=== PATIENT | male | born 1945 | race Caucasian/White ===

== ENCOUNTER 2019-06-04 07:38 | Day surgery (SDC) | payer MEDICARE, OTHER ==
[2019-06-04] MEDS ORDERED: Propofol 200 MG/20 ML SDV ONE (09:08)
[2019-06-04] MEDS ORDERED: fentaNYL 100 MCG/2 ML SDV ONE (09:08)
[2019-06-04] MEDS ORDERED: Dextrose 5%-Lactated Ringers 1,000 ML IV SCH (10:45)
[2019-06-04] MEDS ORDERED: Lactated Ringers 1,000 ML IV SCH ×2 (10:45→11:45)
[2019-06-04 11:27] VITALS: BP 102/65; PULSE 52
--- NOTE | 2019-06-04 11:31 | OR ---
DATE OF PROCEDURE: 06/04/2019 SURGEON: Ricky De Paz MD PREOPERATIVE DIAGNOSES: Dysphagia, colon cancer screening. POSTOPERATIVE DIAGNOSES: Dysphagia, etiology unknown; mild antral inflammation; 6 right colon polyps. PROCEDURES: Esophagogastroduodenoscopy with antral biopsies for CLOtest and for pathology to look for Helicobacter pylori. Colonoscopy to the cecum with biopsy resection or snare cautery polypectomy, 6 right colon polyps adjacent to each other. Sent to the laboratory as one specimen. ANESTHESIA: IV anesthesia with monitored anesthesia care. INDICATION: This 73-year-old white male is referred for upper and lower endoscopy. The indication for upper endoscopy is dysphagia. He says that food sometimes gets stuck, it is quite uncomfortable, feels like a charley horse in his chest. In time, the discomfort passes and the food bolus moves on into the stomach. Additionally, he is referred for a colonoscopy for colon cancer screening. His last colonoscopic exam was done 10 years ago. I counseled him for upper and lower endoscopy with possible biopsy and/or polypectomy, including risks and alternatives, and he gave his informed consent to proceed. DESCRIPTION OF PROCEDURE: The patient was placed in the left lateral decubitus position. IV anesthesia was administered by the Anesthesia Service. Time-out was held. The flexible video Olympus upper endoscope was passed through his mouth, down the esophagus, and into his stomach. The scope was easily passed through the pylorus into the duodenum, reaching its third portion. The scope was then slowly withdrawn, examining the mucosa throughout. The duodenal mucosa appeared unremarkable. The scope was brought up to the pylorus. There was red streaking emanating from the pylorus, consistent with mild gastritis. We obtained antral biopsies for CLOtest and for pathology to look for Helicobacter pylori. The scope was retroflexed. The proximal stomach appeared unremarkable. The scope was straightened and brought up through the GE junction. This appeared unremarkable. The scope was then brought up through the esophagus, which throughout its course appeared unremarkable and it was removed. There was no evidence of any obstructing lesions in his esophagus. Next, a rectal exam was performed, which was unremarkable. The flexible video Olympus colonoscope was introduced through his anus, up his rectum, out his colon all the way to the cecum. In the right colon, we encountered multiple small polyps. These were removed with the biopsy forceps, except for one which was larger and we had to place a snare about its base. It was amputated with electrocautery being applied and was aspirated through the scope and captured in a polyp trap. Once the cecum was reached, the scope was slowly withdrawn, examining the mucosa throughout. No other mucosal abnormalities were noted. There were a total of six polyps we removed from the right colon. The scope was retroflexed in the rectum with the distal rectum appearing unremarkable. The scope was straightened and removed. He tolerated the procedure well. Ricky De Paz MD /[id number]
== END 2019-06-04 11:38 | disposition home or self-care (01) ==
LOC: JP.SDS 07:38
PROVIDERS: ATTEND Surgery
DX: Z12.11 Encounter for screening for malignant neoplasm of colon (principal); K29.50 Unspecified chronic gastritis without bleeding; D12.6 Benign neoplasm of colon, unspecified; K21.9 Gastro-esophageal reflux disease without esophagitis; I25.10 Atherosclerotic heart disease of native coronary artery without angina pectoris; I10 Essential (primary) hypertension
CPT/HCPCS: 87081; 88305; 88342; J2704; J3010; J7120

== ENCOUNTER 2021-07-16 11:39 | Inpatient (IN) | payer MEDICARE ==
[2021-07-16] MEDS ORDERED: Sodium Chloride 0.9% 10 ML Syringe FLUSH PRN (11:54)
--- NOTE | 2021-07-16 12:05 | EDM.PDOC ---
ED HPI GENERAL MEDICAL PROBLEM - General Chief Complaint: Syncope Stated Complaint: [facility] Time Seen by Provider: 07/16/21 11:50 Source of Information: Reports: Patient, EMS, Old Records History Limitations: Reports: No Limitations - History of Present Illness INITIAL COMMENTS - FREE TEXT/NARRATIVE: 75 yo male here from the [facility] for near syncope. Has a pHx of COPD. Quit smoking about 6-7 yrs ago. No fever. Has had cold sx's lately. Is not on home oxygen. Sats in the low 80's per EMS en route. IV fluids started. Not Covid vaccinated. Onset: Gradual Onset Date: 07/14/21 Duration: Day(s):, Getting Worse Location: Reports: Generalized Quality: Reports: Ache (diffuse, chronic) Severity: Moderate Improves with: Reports: Medication Worsens with: Reports: None Context: Reports: Other (See HPI) Associated Symptoms: Reports: Cough (occasional), Loss of Appetite, Malaise, Shortness of Breath (mild), Other (near syncope in clinic today). 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 Neck Pain Score (Numeric/FACES): 2 - Related Data Allergies Allergy/AdvReac Type Severity Reaction Status Date / Time No Known Allergies Allergy Verified 07/16/21 12:29 Home Meds: Home Meds Multivitamin [Men's Multi-Vitamin] 1 mg PO DAILY 01/31/16 [History] Terazosin HCl [Terazosin] 5 mg PO BEDTIME 01/31/16 [History] atorvaSTATin [Lipitor] 40 mg PO BEDTIME 01/31/16 [History] Calcium Carbonate/Vitamin D3 [Calcium 600 + Vit D 200] 1 each PO DAILY 05/17/19 [History] Clopidogrel Bisulfate [Plavix] 75 mg PO DAILY 05/17/19 [History] Acetaminophen 650 mg PO BID PRN 07/16/21 [History] Albuterol Sulfate [Proair Respiclick] 1 puff INH ASDIRECTED 07/16/21 [History] Aspirin 81 mg PO DAILY 07/16/21 [History] Ipratropium/Albuterol Sulfate [Iprat-Albut 0.5-3(2.5) mg/3 ml] 1 dose INH TID 07/16/21 [History] Metoprolol Succinate 12.5 mg PO DAILY 07/16/21 [History] Pantoprazole [ProTONIX] 40 mg PO BEDTIME 07/16/21 [History] QUEtiapine [SEROquel] 12.5 mg PO BEDTIME 07/16/21 [History] QUEtiapine [SEROquel] 12.5 mg PO DAILY PRN 07/16/21 [History] Sennosides/Docusate Sodium [Senna-S 8.6-50 mg Tablet] 2 tab PO DAILY 07/16/21 [History] Sucralfate 1 tab PO QID PRN 07/16/21 [History] Tiotropium [place] [Spiriva Respimat] 2 puff INH DAILY 07/16/21 [History] Past Medical History HEENT History: Reports: Impaired Vision Cardiovascular History: Reports: High Cholesterol, Hypertension, CO Gastrointestinal History: Reports: GERD Genitourinary History: Reports: Prostate Disorder Musculoskeletal History: Reports: Arthritis, Fracture Neurological History: Reports: CVA, Migraines Psychiatric History: Reports: Other (See Below) Other Psychiatric History: insomnia - Infectious Disease History Infectious Disease History: Reports: Chicken Pox - Past Surgical History HEENT Surgical History: Reports: Oral Surgery Cardiovascular Surgical History: Reports: Other (See Below) Other Cardiovascular Surgeries/Procedures: angiogram 1999 GI Surgical History: Reports: Colonoscopy Musculoskeletal Surgical History: Reports: Other (See Below) Other Musculoskeletal Surgeries/Procedures:: fractured knee cap Social & Family History - Caffeine Use Caffeine Use: Reports: Coffee ED ROS GENERAL - Review of Systems Review Of Systems: See Below Constitutional: Reports: Malaise, Decreased Appetite. Denies: Fever HEENT: Reports: No Symptoms Respiratory: Reports: Shortness of Breath, Cough. Denies: Wheezing, Sputum Cardiovascular: Reports: No Symptoms, Syncope (near syncope) GI/Abdominal: Reports: Decreased Appetite. Denies: Constipation, Diarrhea : Reports: No Symptoms Musculoskeletal: Reports: No Symptoms Skin: Reports: No Symptoms Neurological: Reports: No Symptoms - Physical Exam Exam: See Below Exam Limited By: No Limitations General Appearance: Alert, WD/WN, No Apparent Distress Eye Exam: Bilateral Eye: Normal Inspection Ears: Hearing Loss, Other (hearing aid L ear) Nose: Normal Inspection, No Blood Throat/Mouth: Normal Lips, Normal Oropharynx, Normal Voice, No Airway Compromise, Other (dry oral mucosa) Head Exam: Atraumatic, Normocephalic Neck: Normal Inspection Respiratory/Chest: No Respiratory Distress, Lungs Clear. No: Normal Breath Sounds (decreased BS bilaterally) Cardiovascular: Regular Rate, Rhythm, No Edema GI/Abdominal: Normal Bowel Sounds, Soft, Non-Tender, No Distention Neuro Exam (Abbreviated): Alert, Oriented, CN II-XII Intact, Normal Cognition, No Motor/Sensory Deficits Back Exam: Normal Inspection. No: CVA Tenderness (R), CVA Tenderness (L) Extremities: Normal Inspection, Normal Range of Motion, Non-Tender, No Pedal Edema. No: Pedal Edema Psychiatric: Normal Affect, Normal Mood Skin Exam: Warm, Dry, Intact, Normal Color, No Rash Course - Vital Signs Last Recorded V/S: Last Vital Signs Temp 35.8 C L 07/16/21 17:01 Pulse 67 07/16/21 17:01 Resp 18 07/16/21 17:01 BP 127/54 L 07/16/21 17:01 Pulse Ox 97 07/16/21 17:17 - Orders/Labs/Meds Orders: Active Orders 24 hr Category Date Time Status Sodium Chloride 0.9% [Saline Flush] Med 07/16/21 11:54 Active 10 ml FLUSH ASDIRECTED PRN Saline Lock Insert [OM.PC] Routine Oth 07/16/21 11:54 Ordered Medication Orders Acetaminophen (Acetaminophen 325 Mg Tab) 650 mg PO Q4H PRN PRN Reason: Pain (Mild 1-3)/fever Albuterol (Albuterol 8 Gm Inhaler) 0 gm INH Q4H PRN PRN Reason: shortness of breath/wheezing Albuterol/Ipratropium (Albuterol/Ipratropium 4 Gm Inhalation Flushing) 0 gm INH QIDRT REHANA Aspirin (Aspirin 81 Mg Tab.Chew) 81 mg PO DAILY REHANA Atorvastatin Calcium (Atorvastatin 20 Mg Tab) 40 mg PO BEDTIME REHANA Benzonatate (Benzonatate 100 Mg Cap) 100 mg PO TID PRN PRN Reason: Cough Clopidogrel Bisulfate (Clopidogrel 75 Mg Tab) 75 mg PO DAILY [facility] Dexamethasone (Dexamethasone 4 Mg/Ml Sdv) 6 mg IVPUSH Q24H [facility] Enoxaparin Sodium (Enoxaparin 40 Mg/0.4 Ml Syringe) 40 mg SUBCUT Q24H REHANA Last Admin: 07/16/21 17:42 Dose: 40 mg Documented by: GUILLE Guaifenesin/Dextromethorphan (Guaifenesin/Dextromethorphan 100-10 Mg/5 Ml Soln 10 Ml Cup) 10 ml PO Q4H PRN PRN Reason: Cough Remdesivir 100 mg/ Sodium (Chloride) 100 mls @ 100 mls/hr IV Q24H [facility] Stop: 07/20/21 15:59 Lorazepam (Lorazepam 2 Mg/Ml Sdv) 0.5 mg IVPUSH Q4H PRN PRN Reason: Nausea/Vomiting Magnesium Hydroxide (Magnesium Hydroxide 400 Mg/5 Ml Susp 30 Ml Cup) 30 ml PO Q12H PRN PRN Reason: Constipation Melatonin (Melatonin 3 Mg Tab) 9 mg PO BEDTIME PRN PRN Reason: Sleep Metoprolol Succinate (Metoprolol Succinate 25 Mg Tab.Er) 12.5 mg PO DAILY REHANA Ondansetron HCl (Ondansetron 4 Mg/2 Ml Sdv) 4 mg IV Q6H PRN PRN Reason: Nausea/Vomiting Ondansetron HCl (Ondansetron 4 Mg Tab.Dis) 4 mg PO Q6H PRN PRN Reason: Nausea able to take PO Oxycodone HCl (Oxycodone 5 Mg Tab) 5 - 10 mg PO Q4H PRN PRN Reason: Pain Pantoprazole Sodium (Pantoprazole 40 Mg Tab.Cr) 40 mg PO BEDTIME REHANA Quetiapine Fumarate (Quetiapine 25 Mg Tab) 12.5 mg PO BEDTIME REHANA Quetiapine Fumarate (Quetiapine 25 Mg Tab) 12.5 mg PO DAILY PRN PRN Reason: Agitation Senna/Docusate Sodium (Docusate Sodium/Sennosides 50-8.6 Mg Tab) 1 tab PO BID PRN PRN Reason: Constipation Sodium Chloride (Sodium Chloride 0.9% 10 Ml Syringe) 10 ml FLUSH ASDIRECTED PRN PRN Reason: Keep Vein Open Last Admin: 07/16/21 12:39 Dose: 10 ml Documented by: TRUMAN Terazosin HCl (Terazosin 5 Mg Cap) 5 mg PO BEDTIME [facility] Labs: Laboratory Tests 07/16/21 07/16/21 07/16/21 Range/Units 11:56 12:10 12:10 WBC 4.9 (4.5-11.0) K/uL RBC 3.48 L (4.30-5.90) M/uL Hgb 11.2 L D (12.0-15.0) g/dL Hct 35.2 L (40.0-54.0) % MCV 101 H (80-98) fL MCH 32 H (27-31) pg MCHC 32 (32-36) % Plt Count 136 L (150-400) K/uL D-Dimer, Quantitative (0.0-500.0) ng/mL Sodium 139 L (140-148) mmol/L Potassium 4.9 (3.6-5.2) mmol/L Chloride 107 (100-108) mmol/L Carbon Dioxide 23 (21-32) mmol/L Anion Gap 13.9 (5.0-14.0) mmol/L BUN 27 H D (7-18) mg/dL Creatinine 1.4 H (0.8-1.3) mg/dL Est Cr Clr Drug Dosing 45.36 mL/min Estimated GFR (MDRD) 49 L (>60) Glucose 121 H (74-106) mg/dL Calcium 7.7 L (8.5-10.1) mg/dL Total Bilirubin (0.2-1.0) mg/dL Direct Bilirubin (0.0-0.2) mg/dL Indirect Bilirubin AST (15-37) U/L ALT (12-78) U/L Alkaline Phosphatase (46-116) U/L C-Reactive Protein (0.0-0.3) mg/dL Total Protein (6.4-8.2) g/dL Albumin (3.4-5.0) g/dL Globulin (2.3-3.5) g/dL Albumin/Globulin Ratio (1.2-2.2) SARS CoV-2 RNA Rapid HUGO Positive H 07/16/21 07/16/21 07/16/21 Range/Units 12:38 13:08 14:49 WBC (4.5-11.0) K/uL RBC (4.30-5.90) M/uL Hgb (12.0-15.0) g/dL Hct (40.0-54.0) % MCV (80-98) fL MCH (27-31) pg MCHC (32-36) % Plt Count (150-400) K/uL D-Dimer, Quantitative 2218.92 H (0.0-500.0) ng/mL Sodium (140-148) mmol/L Potassium (3.6-5.2) mmol/L Chloride (100-108) mmol/L Carbon Dioxide (21-32) mmol/L Anion Gap (5.0-14.0) mmol/L BUN (7-18) mg/dL Creatinine (0.8-1.3) mg/dL Est Cr Clr Drug Dosing mL/min Estimated GFR (MDRD) (>60) Glucose (74-106) mg/dL Calcium (8.5-10.1) mg/dL Total Bilirubin 0.2 D (0.2-1.0) mg/dL Direct Bilirubin 0.08 (0.0-0.2) mg/dL Indirect Bilirubin TNP AST 23 (15-37) U/L ALT 30 (12-78) U/L Alkaline Phosphatase 84 (46-116) U/L C-Reactive Protein 1.88 H (0.0-0.3) mg/dL Total Protein 6.0 L (6.4-8.2) g/dL Albumin 2.6 L (3.4-5.0) g/dL Globulin 3.4 (2.3-3.5) g/dL Albumin/Globulin Ratio 0.8 L (1.2-2.2) SARS CoV-2 RNA Rapid HUGO Meds: Medications Generic Name Dose Route Start Last Admin Trade Name Freq PRN Reason Stop Dose Admin Acetaminophen 650 mg 07/16/21 16:39 Acetaminophen 325 Mg Tab PO Q4H PRN Pain (Mild 1-3)/fever Albuterol 0 gm 07/16/21 16:39 Albuterol 8 Gm Inhaler INH Q4H PRN shortness of breath/wheezing Albuterol/Ipratropium 0 gm 07/16/21 21:00 Albuterol/Ipratropium 4 Gm Inhalation Flushing INH QIDRT REHANA Aspirin 81 mg 07/17/21 09:00 Aspirin 81 Mg Tab.Chew PO DAILY [facility] Atorvastatin Calcium 40 mg 07/16/21 21:00 Atorvastatin 20 Mg Tab PO BEDTIME REHANA Benzonatate 100 mg 07/16/21 16:39 Benzonatate 100 Mg Cap PO TID PRN Cough Clopidogrel Bisulfate 75 mg 07/17/21 09:00 Clopidogrel 75 Mg Tab PO DAILY [facility] Dexamethasone 6 mg 07/17/21 15:00 Dexamethasone 4 Mg/Ml Sdv IVPUSH Q24H [facility] Enoxaparin Sodium 40 mg 07/16/21 18:00 07/16/21 17:42 Enoxaparin 40 Mg/0.4 Ml Syringe SUBCUT 40 mg Q24H [facility] Administration Guaifenesin/Dextromethorphan 10 ml 07/16/21 16:39 Guaifenesin/Dextromethorphan 100-10 Mg/5 Ml Soln 10 Ml Cup PO Q4H PRN Cough Remdesivir 100 mg/ Sodium 100 mls @ 100 mls/hr 07/17/21 15:00 Chloride IV 07/20/21 15:59 Q24H [facility] Lorazepam 0.5 mg 07/16/21 16:39 Lorazepam 2 Mg/Ml Sdv IVPUSH Q4H PRN Nausea/Vomiting Magnesium Hydroxide 30 ml 07/16/21 16:39 Magnesium Hydroxide 400 Mg/5 Ml Susp 30 Ml Cup PO Q12H PRN Constipation Melatonin 9 mg 07/16/21 16:39 Melatonin 3 Mg Tab PO BEDTIME PRN Sleep Metoprolol Succinate 12.5 mg 07/17/21 09:00 Metoprolol Succinate 25 Mg Tab.Er PO DAILY [facility] Ondansetron HCl 4 mg 07/16/21 16:39 Ondansetron 4 Mg/2 Ml Sdv IV Q6H PRN Nausea/Vomiting Ondansetron HCl 4 mg 07/16/21 16:39 Ondansetron 4 Mg Tab.Dis PO Q6H PRN Nausea able to take PO Oxycodone HCl 5 - 10 mg 07/16/21 16:39 Oxycodone 5 Mg Tab PO Q4H PRN Pain Pantoprazole Sodium 40 mg 07/16/21 21:00 Pantoprazole 40 Mg Tab.Cr PO BEDTIME [facility] Quetiapine Fumarate 12.5 mg 07/16/21 21:00 Quetiapine 25 Mg Tab PO BEDTIME [facility] Quetiapine Fumarate 12.5 mg 07/16/21 16:39 Quetiapine 25 Mg Tab PO DAILY PRN Agitation Senna/Docusate Sodium 1 tab 07/16/21 16:39 Docusate Sodium/Sennosides 50-8.6 Mg Tab PO BID PRN Constipation Sodium Chloride 10 ml 07/16/21 11:54 07/16/21 12:39 Sodium Chloride 0.9% 10 Ml Syringe FLUSH 10 ml ASDIRECTED PRN Administration Keep Vein Open Terazosin HCl 5 mg 07/16/21 21:00 Terazosin 5 Mg Cap PO BEDTIME REHANA Discontinued Medications Generic Name Dose Route Start Last Admin Trade Name Freq PRN Reason Stop Dose Admin Dexamethasone 6 mg 07/16/21 13:08 07/16/21 14:48 Dexamethasone 4 Mg/Ml Sdv IVPUSH 07/16/21 13:09 6 mg ONETIME ONE Administration Sodium Chloride 1,000 mls @ 1,000 mls/hr 07/16/21 12:53 Normal Saline IV 07/16/21 13:52 .BOLUS ONE Sodium Chloride 1,000 mls @ 1,000 mls/hr 07/16/21 13:07 07/16/21 14:50 Normal Saline IV 07/16/21 14:06 1,000 mls/hr .BOLUS ONE Administration Remdesivir 200 mg/ Sodium 250 mls @ 250 mls/hr 07/16/21 14:15 07/16/21 14:50 Chloride IV 07/16/21 15:14 250 mls/hr ONETIME ONE Administration - Radiology Interpretation Free Text/Narrative:: CXR- Departure - Departure Time of Disposition: 17:20 Disposition: Admitted As Inpatient 64 Condition: Poor Clinical Impression: COVID-19, Hypoxia - Discharge Information *PRESCRIPTION DRUG MONITORING PROGRAM REVIEWED*: Not Applicable *COPY OF PRESCRIPTION DRUG MONITORING REPORT IN PATIENT MOIZ: Not Applicable Sepsis Event Note (ED) - Focused Exam Vital Signs: Vital Signs Temp Pulse Resp BP Pulse Ox 07/16/21 14:48 70 18 104/56 L 98 07/16/21 13:48 75 16 109/64 96 07/16/21 12:24 36.1 C 84 18 111/53 L 96 07/16/21 11:49 36.1 C 84 18 111/53 L 96 - My Orders Last 24 Hours: My Active Orders 07/16/21 11:54 Sodium Chloride 0.9% [Saline Flush] 10 ml FLUSH ASDIRECTED PRN Saline Lock Insert [OM.PC] Routine - Assessment/Plan Last 24 Hours: My Active Orders 07/16/21 11:54 Sodium Chloride 0.9% [Saline Flush] 10 ml FLUSH ASDIRECTED PRN Saline Lock Insert [OM.PC] Routine
[2021-07-16] MEDS ORDERED: Sodium Chloride 0.9% 1,000 ML IV ONE ×2 (12:53→13:07)
[2021-07-16] MEDS ORDERED: REMDESIVIR 200 MG in Sodium Chloride 0.9% 250 ML IV ONE ×2 (13:08→14:15)
[2021-07-16] MEDS ORDERED: Dexamethasone 4 MG/ML SDV IVPUSH ONE (13:08)
--- NOTE | 2021-07-16 13:12 | CR ---
CHEST: 2 view CLINICAL HISTORY:Weakness, hypoxia, COPD COMPARISON:2016 FINDINGS: Lungs are emphysematous. There has been previous sternotomy. There are atherosclerotic changes in the aorta. Heart size and pulmonary vascular normal. No infiltrate or effusion seen. Impression: Emphysematous changes No acute cardiac pulmonary process
--- NOTE | 2021-07-16 16:27 | PCM.HP.2 ---
H&P History of Present Illness - General Date of Service: 07/16/21 Admit Problem/Dx: Admission Diagnosis/Problem Admission Diagnosis/Problem Pneumonia Source of Information: Patient, Provider History Limitations: Reports: No Limitations - History of Present Illness Initial Comments - Free Text/Narative: CC: I almost passed out HPI: Jonn presents to the emergency room today from the clinic and walk[facility]. He presented there for follow-up and had a near syncopal episode. He reports that for about the past week he has felt like he had a cold with some sinus congestion and rhinorrhea. No fevers. He does have an intermittent cough with some sputum. Symptoms have progressed over the past week or so. He has had increasing shortness of breath. He has had increasing weakness and his appetite has not been very good. He reports diffuse myalgias and arthralgias which have progressed over the past week. He is more comfortable when he is resting in his chair but has increased achy pain throughout essentially his entire body with any sort of movement. He has not taken any medications to help with the pain. He is not aware of any obvious sick contacts and says he is at home most of the time. He and his do some grocery shopping but that is the extent of their travel. He has not been vaccinated against Covid. He does report some mild diarrhea and had nausea earlier. No loss of taste or smell. Work-up in the emergency room revealed evidence for Covid pneumonia complicated by acute respiratory failure with hypoxia. He received dexamethasone and remdesivir. He will be admitted for further management. Neck Pain Score (Numeric/FACES): 2 - Related Data Allergies/Adverse Reactions: Allergies Allergy/AdvReac Type Severity Reaction Status Date / Time No Known Allergies Allergy Verified 07/16/21 12:29 Home Medications: Home Meds Multivitamin [Men's Multi-Vitamin] 1 mg PO DAILY 01/31/16 [History] Terazosin HCl [Terazosin] 5 mg PO BEDTIME 01/31/16 [History] atorvaSTATin [Lipitor] 40 mg PO BEDTIME 01/31/16 [History] Calcium Carbonate/Vitamin D3 [Calcium 600 + Vit D 200] 1 each PO DAILY 05/17/19 [History] Clopidogrel Bisulfate [Plavix] 75 mg PO DAILY 05/17/19 [History] Acetaminophen 650 mg PO BID PRN 07/16/21 [History] Albuterol Sulfate [Proair Respiclick] 1 puff INH ASDIRECTED 07/16/21 [History] Aspirin 81 mg PO DAILY 07/16/21 [History] Ipratropium/Albuterol Sulfate [Iprat-Albut 0.5-3(2.5) mg/3 ml] 1 dose INH TID 07/16/21 [History] Metoprolol Succinate 12.5 mg PO DAILY 07/16/21 [History] Pantoprazole [ProTONIX] 40 mg PO BEDTIME 07/16/21 [History] QUEtiapine [SEROquel] 12.5 mg PO BEDTIME 07/16/21 [History] QUEtiapine [SEROquel] 12.5 mg PO DAILY PRN 07/16/21 [History] Sennosides/Docusate Sodium [Senna-S 8.6-50 mg Tablet] 2 tab PO DAILY 07/16/21 [History] Sucralfate 1 tab PO QID PRN 07/16/21 [History] Tiotropium [place] [Spiriva Respimat] 2 puff INH DAILY 07/16/21 [History] Past Medical History HEENT History: Reports: Impaired Vision Cardiovascular History: Reports: High Cholesterol, Hypertension, [place] Gastrointestinal History: Reports: GERD Genitourinary History: Reports: Prostate Disorder Musculoskeletal History: Reports: Arthritis, Fracture Neurological History: Reports: CVA, Migraines Psychiatric History: Reports: Other (See Below) Other Psychiatric History: insomnia - Infectious Disease History Infectious Disease History: Reports: Chicken Pox - Past Surgical History HEENT Surgical History: Reports: Oral Surgery Cardiovascular Surgical History: Reports: Carotid Endarterectomy, Coronary Artery Bypass, Other (See Below) Other Cardiovascular Surgeries/Procedures: angiogram 1999 GI Surgical History: Reports: Colonoscopy Musculoskeletal Surgical History: Reports: Other (See Below) Other Musculoskeletal Surgeries/Procedures:: fractured knee cap Social & Family History - Family History Cardiac: Denies: CAD - Tobacco Use Tobacco Use Status *Q: Former Tobacco User Used Tobacco, but Quit: Yes Month/Year Tobacco Last Used: 2015 - Caffeine Use Caffeine Use: Reports: Coffee - Alcohol Use Alcohol Use History: No Alcohol Use in Last Twelve Months: No - Recreational Drug Use Recreational Drug Use: No H&P Review of Systems - Review of Systems: Review Of Systems: See Below Free Text/Narrative: A complete 12 point review of systems was obtained. Pertinent positives and negatives are noted in the history of present illness. All other systems were reviewed and were negative except as noted. Exam - Exam Exam: See Below - Vital Signs Vital Signs: Last Vital Signs Temp 36.1 C 07/16/21 12:24 Pulse 70 07/16/21 14:48 Resp 18 07/16/21 14:48 BP 104/56 L 07/16/21 14:48 Pulse Ox 98 07/16/21 14:48 Weight: 72.575 kg - Exam Quality Assessment: Supplemental Oxygen General: Alert, Oriented, Cooperative. No: Mild Distress HEENT: Conjunctiva Clear. No: Mucosa Moist & [place] (Dry), Scleral Icterus Neck: Supple, Trachea Midline Lungs: Clear to Auscultation, Normal Respiratory Effort. No: Wheezing Cardiovascular: Regular Rate, Regular Rhythm. No: Systolic Murmur GI/Abdominal Exam: Normal Bowel Sounds, Soft, Non-Tender, No Distention Extremities: No Pedal Edema. No: Increased Warmth Peripheral Pulses: 2+: Dorsalis Pedis (L), Dorsalis Pedis (R) Skin: Warm, Dry Neuro Extensive - Mental Status: Alert, Oriented x3, Nl Response to Commands Neuro Extensive - Motor, Sensory, Reflexes: No: Dysarthria, Abnormal Motor, Tremor Psychiatric: Alert, Normal Affect - Patient Data Lab Results Last 24 hrs: Laboratory Results - last 24 hr 07/16/21 07/16/21 07/16/21 Range/Units 11:56 12:10 12:10 WBC 4.9 (4.5-11.0) K/uL RBC 3.48 L (4.30-5.90) M/uL Hgb 11.2 L D (12.0-15.0) g/dL Hct 35.2 L (40.0-54.0) % MCV 101 H (80-98) fL MCH 32 H (27-31) pg MCHC 32 (32-36) % Plt Count 136 L (150-400) K/uL D-Dimer, Quantitative (0.0-500.0) ng/mL Sodium 139 L (140-148) mmol/L Potassium 4.9 (3.6-5.2) mmol/L Chloride 107 (100-108) mmol/L Carbon Dioxide 23 (21-32) mmol/L Anion Gap 13.9 (5.0-14.0) mmol/L BUN 27 H D (7-18) mg/dL Creatinine 1.4 H (0.8-1.3) mg/dL Est Cr Clr Drug Dosing 45.36 mL/min Estimated GFR (MDRD) 49 L (>60) Glucose 121 H (74-106) mg/dL Calcium 7.7 L (8.5-10.1) mg/dL Total Bilirubin (0.2-1.0) mg/dL Direct Bilirubin (0.0-0.2) mg/dL Indirect Bilirubin AST (15-37) U/L ALT (12-78) U/L Alkaline Phosphatase (46-116) U/L C-Reactive Protein (0.0-0.3) mg/dL Total Protein (6.4-8.2) g/dL Albumin (3.4-5.0) g/dL Globulin (2.3-3.5) g/dL Albumin/Globulin Ratio (1.2-2.2) SARS CoV-2 RNA Rapid HUGO Positive H 07/16/21 07/16/21 07/16/21 Range/Units 12:38 13:08 14:49 WBC (4.5-11.0) K/uL RBC (4.30-5.90) M/uL Hgb (12.0-15.0) g/dL Hct (40.0-54.0) % MCV (80-98) fL MCH (27-31) pg MCHC (32-36) % Plt Count (150-400) K/uL D-Dimer, Quantitative 2218.92 H (0.0-500.0) ng/mL Sodium (140-148) mmol/L Potassium (3.6-5.2) mmol/L Chloride (100-108) mmol/L Carbon Dioxide (21-32) mmol/L Anion Gap (5.0-14.0) mmol/L BUN (7-18) mg/dL Creatinine (0.8-1.3) mg/dL Est Cr Clr Drug Dosing mL/min Estimated GFR (MDRD) (>60) Glucose (74-106) mg/dL Calcium (8.5-10.1) mg/dL Total Bilirubin 0.2 D (0.2-1.0) mg/dL Direct Bilirubin 0.08 (0.0-0.2) mg/dL Indirect Bilirubin TNP AST 23 (15-37) U/L ALT 30 (12-78) U/L Alkaline Phosphatase 84 (46-116) U/L C-Reactive Protein 1.88 H (0.0-0.3) mg/dL Total Protein 6.0 L (6.4-8.2) g/dL Albumin 2.6 L (3.4-5.0) g/dL Globulin 3.4 (2.3-3.5) g/dL Albumin/Globulin Ratio 0.8 L (1.2-2.2) SARS CoV-2 RNA Rapid HUGO Result Diagrams: 07/16/21 12:10 07/16/21 12:10 Imaging Impressions Last 24 hrs: Chest x-ray-image personally reviewed-there is evidence for hyperinflation suggestive of emphysema. Heart size is normal. No obvious mass, infiltrate or effusion. Sepsis Event Note - Focused Exam Vital Signs: Vital Signs Temp Pulse Resp BP Pulse Ox 07/16/21 14:48 70 18 104/56 L 98 07/16/21 13:48 75 16 109/64 96 07/16/21 12:24 36.1 C 84 18 111/53 L 96 07/16/21 11:49 36.1 C 84 18 111/53 L 96 *Q Meaningful Use (ADM) - VTE Risk Assess *Q Each Risk Factor Represents 1 Point: Serious lung disease including pneumonia, Abnormal Pulmonary Function (COPD) Total Score 1 Point Risk Factors: 2 Each Risk Factor Represents 2 Points: None Total Score 2 Point Risk Factors: 0 Each Risk Factor Represents 3 Points: Age 75 Years or Greater Total Score 3 Point Risk Factors: 3 Each Risk Factor Represents 5 Points: None Total Score 5 Point Risk Factors: 0 Venous Thromboembolism Risk Factor Score *Q: 5 - Problem List (1) Pneumonia due to COVID-19 virus SNOMED Code(s): 066799931231353021 ICD Code: U07.1 - COVID-19; J12.82 - PNEUMONIA DUE TO CORONAVIRUS DISEASE 2019 Status: Acute Current Visit: Yes (2) Acute respiratory failure due to COVID-19 SNOMED Code(s): 549356862 ICD Code: U07.1 - COVID-19; J96.00 - ACUTE RESPIRATORY FAILURE, UNSP W HYPOXIA OR HYPERCAPNIA Status: Acute Current Visit: Yes (3) COPD (chronic obstructive pulmonary disease) SNOMED Code(s): 04737356 ICD Code: J44.9 - CHRONIC OBSTRUCTIVE PULMONARY DISEASE, UNSPECIFIED Status: Chronic Current Visit: Yes Qualifiers: COPD type: unspecified COPD Qualified Code(s): J44.9 - Chronic obstructive pulmonary disease, unspecified Problem List Initiated/Reviewed/Updated: Yes Orders Last 24hrs: Active Orders 24 hr Category Date Time Status Patient Status Manage Transfer [TRANSFER] Routine ADT 07/16/21 16:19 Active Cardiac Monitoring [RC] .As Directed Care 07/16/21 11:53 Active Orthostatic Vital Signs [RC] ASDIRECTED Care 07/16/21 11:53 Active Oxygen Therapy Adult [Oxygen Therapy] [RC] ASDIRECTED Care 07/16/21 12:33 Active UA W/MICROSCOPIC [URIN] Stat Lab 07/16/21 11:52 Ordered Sodium Chloride 0.9% [Saline Flush] Med 07/16/21 11:54 Active 10 ml FLUSH ASDIRECTED PRN Saline Lock Insert [OM.PC] Routine Oth 07/16/21 11:54 Ordered Resuscitation Status Routine Resus Stat 07/16/21 16:21 Ordered Medication Orders Sodium Chloride (Sodium Chloride 0.9% 10 Ml Syringe) 10 ml FLUSH ASDIRECTED PRN PRN Reason: Keep Vein Open Last Admin: 07/16/21 12:39 Dose: 10 ml Documented by: TRUMAN Assessment/Plan Comment:: ASSESSMENT AND PLAN - COVID-19 pneumonia-complicated by acute respiratory failure with hypoxia. Unvaccinated. Symptom onset about 1 week prior to admission. He has received dexamethasone and remdesivir. -Remdesivir x5 days -Dexamethasone 6 mg daily (day 1) -Enoxaparin every 24 hours -Symptomatic management of cough -Supplement oxygen, wean as able -CRP and D-dimer every 2 days -Isolation precautions COPD-Long smoking history. Quit 6 years ago. No evidence for acute exacerbation. -Scheduled and as needed inhalers Coronary artery disease-history of bypass surgery in the last 6 months. No active chest pain. -Medical management Maintenance issues - -DVT prophylaxis-enoxaparin -GI prophylaxis-not indicated -Nutrition-regular -[place] catheter-not indicated CODE STATUS -full code Admission justification -this patient will be admitted for inpatient services and is medically appropriate meeting medical necessity for inpatient admission as outlined in my documentation. I reasonably expect the patient will require inpatient services that span a period time over 2 midnights. I reasonably expect this patient to be discharged or transferred within 96 hours after admission to the [facility]. Disposition -I anticipate discharge home after the hospital stay Primary care physician -Dr. Gail Asif M.D. - Mortality Measure Prognosis:: Good
[2021-07-16] MEDS ORDERED: LORazepam 2 MG/ML SDV IVPUSH PRN (16:39)
[2021-07-16] MEDS ORDERED: oxyCODONE 5 MG Tab PO PRN (16:39)
[2021-07-16] MEDS ORDERED: Albuterol 8 GM Inhaler INH PRN (16:39)
[2021-07-16] MEDS ORDERED: Acetaminophen 325 MG Tab PO PRN (16:39)
[2021-07-16] MEDS ORDERED: Ondansetron 4 MG/2 ML SDV IV PRN (16:39)
[2021-07-16] MEDS ORDERED: Magnesium Hydroxide 400 MG/5 ML Susp 30 ML Cup PO PRN (16:39)
[2021-07-16] MEDS ORDERED: guaiFENesin/Dextromethorphan 100-10 MG/5 ML Soln 10 ML Cup PO PRN (16:39)
[2021-07-16] MEDS ORDERED: Benzonatate 100 MG Cap PO PRN (16:39)
[2021-07-16] MEDS ORDERED: Ondansetron 4 MG Tab.DIS PO PRN (16:39)
[2021-07-16] MEDS ORDERED: QUEtiapine 25 MG Tab PO PRN (16:39)
[2021-07-16] MEDS ORDERED: Melatonin 3 MG Tab PO PRN (16:39)
[2021-07-16] MEDS: Enoxaparin 40 MG/0.4 ML Syringe SUBCUT SCH (17:42)
[2021-07-16] MEDS: Terazosin 5 MG Cap PO SCH (21:15)
[2021-07-16] MEDS: atorvaSTATin 20 MG Tab PO SCH (21:16)
[2021-07-16] MEDS: Pantoprazole 40 MG Tab.CR PO SCH (21:17)
[2021-07-16] MEDS: QUEtiapine 25 MG Tab PO SCH (21:18)
[2021-07-16] MEDS: Albuterol/Ipratropium 4 GM Inhalation Spray INH SCH (21:19)
[2021-07-17] MEDS: Albuterol/Ipratropium 4 GM Inhalation Spray INH SCH ×4 (07:33→21:18)
[2021-07-17] MEDS: Metoprolol Succinate 25 MG Tab.ER PO SCH (10:22)
[2021-07-17] MEDS: Clopidogrel 75 MG Tab PO SCH (10:22)
[2021-07-17] MEDS: Aspirin 81 MG Tab.Chew PO SCH (10:25)
--- NOTE | 2021-07-17 14:55 | PCM.PN ---
- General Info Date of Service: 07/17/21 Subjective Update: No acute events overnight. Patient reports that he feels fairly well overall. Mild intermittent cough with mild sputum. Myalgias and arthralgias have improved some. He did require supplemental oxygen overnight. We removed the oxygen during our discussion today and he has remained in the mid 90s without supplemental oxygen. Appetite good. Strength weak but overall doing okay. Functional Status: Reports: Pain Controlled, Tolerating Diet - Review of Systems General: Reports: Weakness Pulmonary: Reports: Cough. Denies: Shortness of Breath - Patient Data Vitals - Most Recent: Last Vital Signs Temp 35.8 C L 07/17/21 11:11 Pulse 70 07/17/21 11:11 Resp 18 07/17/21 11:11 BP 108/52 L 07/17/21 11:11 Pulse Ox 99 07/17/21 11:11 Weight - Most Recent: 72.575 kg I&O - Last 24 Hours: Intake & Output 07/16/21 07/17/21 07/17/21 22:59 06:59 14:59 Intake Total 380 220 Output Total 350 Balance 380 -350 220 Lab Results Last 24 Hours: Laboratory Results - last 24 hr 07/16/21 07/16/21 07/17/21 Range/Units 14:49 17:03 04:40 WBC 8.0 (4.5-11.0) K/uL RBC 3.37 L (4.30-5.90) M/uL Hgb 10.6 L (12.0-15.0) g/dL Hct 33.4 L (40.0-54.0) % MCV 99 H (80-98) fL MCH 32 H (27-31) pg MCHC 32 (32-36) % Plt Count 153 (150-400) K/uL Sodium (140-148) mmol/L Potassium (3.6-5.2) mmol/L Chloride (100-108) mmol/L Carbon Dioxide (21-32) mmol/L Anion Gap (5.0-14.0) mmol/L BUN (7-18) mg/dL Creatinine (0.8-1.3) mg/dL Est Cr Clr Drug Dosing mL/min Estimated GFR (MDRD) (>60) Glucose (74-106) mg/dL Calcium (8.5-10.1) mg/dL Total Bilirubin (0.2-1.0) mg/dL AST (15-37) U/L ALT (12-78) U/L Alkaline Phosphatase (46-116) U/L C-Reactive Protein 1.88 H (0.0-0.3) mg/dL Total Protein (6.4-8.2) g/dL Albumin (3.4-5.0) g/dL Globulin (2.3-3.5) g/dL Albumin/Globulin Ratio (1.2-2.2) Urine Color Yellow (YELLOW) Urine Appearance Clear (CLEAR) Urine pH 5.5 (5.0-8.0) Ur Specific [place] 1.025 (1.008-1.030) Urine Protein Negative (NEGATIVE) mg/dL Urine Glucose (UA) Negative (NEGATIVE) mg/dL Urine Ketones Negative (NEGATIVE) mg/dL Urine Occult Blood Negative (NEGATIVE) Urine Nitrite Negative (NEGATIVE) Urine Bilirubin Negative (NEGATIVE) Urine Urobilinogen 0.2 (0.2-1.0) EU/dL Ur Leukocyte Esterase Negative (NEGATIVE) Urine RBC 0-5 (0-5) Urine WBC 0-5 (0-5) Ur Epithelial Cells Few Amorphous Sediment Not seen Urine Bacteria Moderate Urine Mucus Moderate Urine Other 07/17/21 Range/Units 04:40 WBC (4.5-11.0) K/uL RBC (4.30-5.90) M/uL Hgb (12.0-15.0) g/dL Hct (40.0-54.0) % MCV (80-98) fL MCH (27-31) pg MCHC (32-36) % Plt Count (150-400) K/uL Sodium 139 L (140-148) mmol/L Potassium 4.4 (3.6-5.2) mmol/L Chloride 106 (100-108) mmol/L Carbon Dioxide 24 (21-32) mmol/L Anion Gap 13.4 (5.0-14.0) mmol/L BUN 25 H (7-18) mg/dL Creatinine 1.2 (0.8-1.3) mg/dL Est Cr Clr Drug Dosing 52.92 mL/min Estimated GFR (MDRD) 59 L (>60) Glucose 114 H (74-106) mg/dL Calcium 7.7 L (8.5-10.1) mg/dL Total Bilirubin 0.2 (0.2-1.0) mg/dL AST 22 (15-37) U/L ALT 26 (12-78) U/L Alkaline Phosphatase 74 (46-116) U/L C-Reactive Protein (0.0-0.3) mg/dL Total Protein 5.6 L (6.4-8.2) g/dL Albumin 2.3 L (3.4-5.0) g/dL Globulin 3.3 (2.3-3.5) g/dL Albumin/Globulin Ratio 0.7 L (1.2-2.2) Urine Color (YELLOW) Urine Appearance (CLEAR) Urine pH (5.0-8.0) Ur Specific [place] (1.008-1.030) Urine Protein (NEGATIVE) mg/dL Urine Glucose (UA) (NEGATIVE) mg/dL Urine Ketones (NEGATIVE) mg/dL Urine Occult Blood (NEGATIVE) Urine Nitrite (NEGATIVE) Urine Bilirubin (NEGATIVE) Urine Urobilinogen (0.2-1.0) EU/dL Ur Leukocyte Esterase (NEGATIVE) Urine RBC (0-5) Urine WBC (0-5) Ur Epithelial Cells Amorphous Sediment Urine Bacteria Urine Mucus Urine Other Med Orders - Current: Current Medications Acetaminophen (Acetaminophen 325 Mg Tab) 650 mg PO Q4H PRN PRN Reason: Pain (Mild 1-3)/fever Last Admin: 07/16/21 21:18 Dose: 650 mg Documented by: Albuterol (Albuterol 8 Gm Inhaler) 0 gm INH Q4H PRN PRN Reason: shortness of breath/wheezing Albuterol/Ipratropium (Albuterol/Ipratropium 4 Gm Inhalation [place]) 0 gm INH QIDRT [facility] Last Admin: 07/17/21 07:33 Dose: 1 puff Documented by: Aspirin (Aspirin 81 Mg Tab.Chew) 81 mg PO DAILY [facility] Last Admin: 07/17/21 10:25 Dose: 81 mg Documented by: Atorvastatin Calcium (Atorvastatin 20 Mg Tab) 40 mg PO BEDTIME [facility] Last Admin: 07/16/21 21:16 Dose: 40 mg Documented by: Benzonatate (Benzonatate 100 Mg Cap) 100 mg PO TID PRN PRN Reason: Cough Clopidogrel Bisulfate (Clopidogrel 75 Mg Tab) 75 mg PO DAILY [facility] Last Admin: 07/17/21 10:22 Dose: 75 mg Documented by: Dexamethasone (Dexamethasone 4 Mg/Ml Sdv) 6 mg IVPUSH Q24H [facility] Enoxaparin Sodium (Enoxaparin 40 Mg/0.4 Ml Syringe) 40 mg SUBCUT Q24H [facility] Last Admin: 07/16/21 17:42 Dose: 40 mg Documented by: Guaifenesin/Dextromethorphan (Guaifenesin/Dextromethorphan 100-10 Mg/5 Ml Soln 10 Ml Cup) 10 ml PO Q4H PRN PRN Reason: Cough Remdesivir 100 mg/ Sodium (Chloride) 100 mls @ 100 mls/hr IV Q24H [facility] Stop: 07/20/21 15:59 Lorazepam (Lorazepam 2 Mg/Ml Sdv) 0.5 mg IVPUSH Q4H PRN PRN Reason: Nausea/Vomiting Magnesium Hydroxide (Magnesium Hydroxide 400 Mg/5 Ml Susp 30 Ml Cup) 30 ml PO Q12H PRN PRN Reason: Constipation Melatonin (Melatonin 3 Mg Tab) 9 mg PO BEDTIME PRN PRN Reason: Sleep Metoprolol Succinate (Metoprolol Succinate 25 Mg Tab.Er) 12.5 mg PO DAILY [facility] Last Admin: 07/17/21 10:22 Dose: 12.5 mg Documented by: Ondansetron HCl (Ondansetron 4 Mg/2 Ml Sdv) 4 mg IV Q6H PRN PRN Reason: Nausea/Vomiting Ondansetron HCl (Ondansetron 4 Mg Tab.Dis) 4 mg PO Q6H PRN PRN Reason: Nausea able to take PO Oxycodone HCl (Oxycodone 5 Mg Tab) 5 - 10 mg PO Q4H PRN PRN Reason: Pain Pantoprazole Sodium (Pantoprazole 40 Mg Tab.Cr) 40 mg PO BEDTIME [facility] Last Admin: 07/16/21 21:17 Dose: 40 mg Documented by: Quetiapine Fumarate (Quetiapine 25 Mg Tab) 12.5 mg PO BEDTIME [facility] Last Admin: 07/16/21 21:18 Dose: 12.5 mg Documented by: Quetiapine Fumarate (Quetiapine 25 Mg Tab) 12.5 mg PO DAILY PRN PRN Reason: Agitation Senna/Docusate Sodium (Docusate Sodium/Sennosides 50-8.6 Mg Tab) 1 tab PO BID PRN PRN Reason: Constipation Sodium Chloride (Sodium Chloride 0.9% 10 Ml Syringe) 10 ml FLUSH ASDIRECTED PRN PRN Reason: Keep Vein Open Last Admin: 07/16/21 12:39 Dose: 10 ml Documented by: Terazosin HCl (Terazosin 5 Mg Cap) 5 mg PO BEDTIME [facility] Last Admin: 07/16/21 21:15 Dose: 5 mg Documented by: Discontinued Medications Dexamethasone (Dexamethasone 4 Mg/Ml Sdv) 6 mg IVPUSH ONETIME ONE Stop: 07/16/21 13:09 Last Admin: 07/16/21 14:48 Dose: 6 mg Documented by: Sodium Chloride (Normal Saline) 1,000 mls @ 1,000 mls/hr IV .BOLUS ONE Stop: 07/16/21 13:52 Last Admin: 07/16/21 20:03 Dose: Not Given Documented by: Sodium Chloride (Normal Saline) 1,000 mls @ 1,000 mls/hr IV .BOLUS ONE Stop: 07/16/21 14:06 Last Admin: 07/16/21 14:50 Dose: 1,000 mls/hr Documented by: Remdesivir 200 mg/ Sodium (Chloride) 250 mls @ 250 mls/hr IV ONETIME ONE Stop: 07/16/21 15:14 Last Admin: 07/16/21 14:50 Dose: 250 mls/hr Documented by: - Exam Quality Assessment: Supplemental Oxygen General: Alert, Oriented, Cooperative, No Acute Distress Lungs: Normal Respiratory Effort. No: Wheezing GI/Abdominal Exam: Soft, No Distention Extremities: No Pedal Edema Skin: Warm, Dry Psy/Mental Status: Alert, Normal Affect - Patient Data Lab Results Last 24 hrs: Laboratory Results - last 24 hr 07/16/21 07/16/21 07/17/21 Range/Units 14:49 17:03 04:40 WBC 8.0 (4.5-11.0) K/uL RBC 3.37 L (4.30-5.90) M/uL Hgb 10.6 L (12.0-15.0) g/dL Hct 33.4 L (40.0-54.0) % MCV 99 H (80-98) fL MCH 32 H (27-31) pg MCHC 32 (32-36) % Plt Count 153 (150-400) K/uL Sodium (140-148) mmol/L Potassium (3.6-5.2) mmol/L Chloride (100-108) mmol/L Carbon Dioxide (21-32) mmol/L Anion Gap (5.0-14.0) mmol/L BUN (7-18) mg/dL Creatinine (0.8-1.3) mg/dL Est Cr Clr Drug Dosing mL/min Estimated GFR (MDRD) (>60) Glucose (74-106) mg/dL Calcium (8.5-10.1) mg/dL Total Bilirubin (0.2-1.0) mg/dL AST (15-37) U/L ALT (12-78) U/L Alkaline Phosphatase (46-116) U/L C-Reactive Protein 1.88 H (0.0-0.3) mg/dL Total Protein (6.4-8.2) g/dL Albumin (3.4-5.0) g/dL Globulin (2.3-3.5) g/dL Albumin/Globulin Ratio (1.2-2.2) Urine Color Yellow (YELLOW) Urine Appearance Clear (CLEAR) Urine pH 5.5 (5.0-8.0) Ur Specific [place] 1.025 (1.008-1.030) Urine Protein Negative (NEGATIVE) mg/dL Urine Glucose (UA) Negative (NEGATIVE) mg/dL Urine Ketones Negative (NEGATIVE) mg/dL Urine Occult Blood Negative (NEGATIVE) Urine Nitrite Negative (NEGATIVE) Urine Bilirubin Negative (NEGATIVE) Urine Urobilinogen 0.2 (0.2-1.0) EU/dL Ur Leukocyte Esterase Negative (NEGATIVE) Urine RBC 0-5 (0-5) Urine WBC 0-5 (0-5) Ur Epithelial Cells Few Amorphous Sediment Not seen Urine Bacteria Moderate Urine Mucus Moderate Urine Other 07/17/21 Range/Units 04:40 WBC (4.5-11.0) K/uL RBC (4.30-5.90) M/uL Hgb (12.0-15.0) g/dL Hct (40.0-54.0) % MCV (80-98) fL MCH (27-31) pg MCHC (32-36) % Plt Count (150-400) K/uL Sodium 139 L (140-148) mmol/L Potassium 4.4 (3.6-5.2) mmol/L Chloride 106 (100-108) mmol/L Carbon Dioxide 24 (21-32) mmol/L Anion Gap 13.4 (5.0-14.0) mmol/L BUN 25 H (7-18) mg/dL Creatinine 1.2 (0.8-1.3) mg/dL Est Cr Clr Drug Dosing 52.92 mL/min Estimated GFR (MDRD) 59 L (>60) Glucose 114 H (74-106) mg/dL Calcium 7.7 L (8.5-10.1) mg/dL Total Bilirubin 0.2 (0.2-1.0) mg/dL AST 22 (15-37) U/L ALT 26 (12-78) U/L Alkaline Phosphatase 74 (46-116) U/L C-Reactive Protein (0.0-0.3) mg/dL Total Protein 5.6 L (6.4-8.2) g/dL Albumin 2.3 L (3.4-5.0) g/dL Globulin 3.3 (2.3-3.5) g/dL Albumin/Globulin Ratio 0.7 L (1.2-2.2) Urine Color (YELLOW) Urine Appearance (CLEAR) Urine pH (5.0-8.0) Ur Specific [place] (1.008-1.030) Urine Protein (NEGATIVE) mg/dL Urine Glucose (UA) (NEGATIVE) mg/dL Urine Ketones (NEGATIVE) mg/dL Urine Occult Blood (NEGATIVE) Urine Nitrite (NEGATIVE) Urine Bilirubin (NEGATIVE) Urine Urobilinogen (0.2-1.0) EU/dL Ur Leukocyte Esterase (NEGATIVE) Urine RBC (0-5) Urine WBC (0-5) Ur Epithelial Cells Amorphous Sediment Urine Bacteria Urine Mucus Urine Other Result Diagrams: 07/17/21 04:40 07/17/21 04:40 Sepsis Event Note - Evaluation Sepsis Screening Result: No Definite Risk - Focused Exam Vital Signs: Vital Signs Temp Pulse Pulse Resp BP BP Pulse Ox 07/17/21 11:11 35.8 C L 70 18 108/52 L 99 07/17/21 10:22 83 111/52 L 07/17/21 07:00 35.1 C L 79 16 117/60 89 L 07/17/21 04:00 36.6 C 70 16 111/60 96 - Problem List & Annotations (1) Pneumonia due to COVID-19 virus SNOMED Code(s): 102840540434560011 Code(s): U07.1 - COVID-19; J12.82 - PNEUMONIA DUE TO CORONAVIRUS DISEASE 2019 Status: Acute Current Visit: Yes (2) Acute respiratory failure due to COVID-19 SNOMED Code(s): 569555954 Code(s): U07.1 - COVID-19; J96.00 - ACUTE RESPIRATORY FAILURE, UNSP W HYPOXIA OR HYPERCAPNIA Status: Acute Current Visit: Yes (3) COPD (chronic obstructive pulmonary disease) SNOMED Code(s): 50061601 Code(s): J44.9 - CHRONIC OBSTRUCTIVE PULMONARY DISEASE, UNSPECIFIED Status: Chronic Current Visit: Yes Qualifiers: COPD type: unspecified COPD Qualified Code(s): J44.9 - Chronic obstructive pulmonary disease, unspecified - Problem List Review Problem List Initiated/Reviewed/Updated: Yes - My Orders Last 24 Hours: My Active Orders 07/16/21 16:21 Resuscitation Status Routine 07/16/21 16:39 Acetaminophen [TylenoL] 650 mg PO Q4H PRN Albuterol [Ventolin HFA] 0 gm INH Q4H PRN Benzonatate [Tessalon Perles] 100 mg PO TID PRN Dextromethorphan/guaiFENesin [Robitussin DM] 10 ml PO Q4H PRN Docusate Sodium/Sennosides [Senna Plus] 1 tab PO BID PRN LORazepam [Ativan] 0.5 mg IVPUSH Q4H PRN Magnesium Hydroxide [Milk of Magnesia] 30 ml PO Q12H PRN Melatonin 9 mg PO BEDTIME PRN Ondansetron [Zofran ODT] 4 mg PO Q6H PRN Ondansetron [Zofran] 4 mg IV Q6H PRN QUEtiapine [SEROqueL] 12.5 mg PO DAILY PRN oxyCODONE 5 - 10 mg PO Q4H PRN 07/16/21 16:39 Patient Status [ADT] Routine Intake and Output [RC] QSHIFT Notify Provider Vital Signs [RC] ASDIRECTED Oxygen Therapy [RC] PRN Pulse Oximetry [RC] CONTINUOUS RT Aerosol Therapy [RC] ASDIRECTED RT Post Treatment Assessment [RC] Click to Edit Up With Assistance [RC] ASDIRECTED VTE/DVT Education [RC] Per Unit Routine Vital Signs [RC] Q4H Isolation [COMM] Routine 07/16/21 Dinner Regular Diet [DIET] 07/16/21 18:00 Enoxaparin [Lovenox] 40 mg SUBCUT Q24H 07/16/21 21:00 Albuterol/Ipratropium [Combivent Respimat] 0 gm INH QIDRT Pantoprazole [ProTONIX] 40 mg PO BEDTIME QUEtiapine [SEROqueL] 12.5 mg PO BEDTIME Terazosin [Hytrin] 5 mg PO BEDTIME atorvaSTATin [Lipitor] 40 mg PO BEDTIME 07/17/21 09:00 Aspirin 81 mg PO DAILY Clopidogrel [Plavix] 75 mg PO DAILY Metoprolol Succinate [Toprol XL] 12.5 mg PO DAILY 07/17/21 14:51 Consult to Physical Therapy [PT Evaluation and Treatment] [CONS] Routine 07/17/21 15:00 Remdesivir 100 mg Sodium Chloride 0.9% [Normal Saline] 100 ml IV Q24H dexAMETHasone [Decadron] 6 mg IVPUSH Q24H 07/18/21 05:00 COMPREHENSIVE METABOLIC PN,CMP [CHEM] Timed CRP [C-REACTIVE PROTEIN] [CHEM] Timed D-DIMER QUANTITATIVE [COAG] Timed - Plan Plan:: ASSESSMENT AND PLAN - COVID-19 pneumonia-complicated by acute respiratory failure with hypoxia. Unvaccinated. Symptom onset about 1 week prior to admission. Tolerating treatment. Symptomatically feeling better. Off oxygen as of this afternoon. -Remdesivir x5 days -Dexamethasone 6 mg daily (day 2) -Enoxaparin every 24 hours -Symptomatic management of cough -Supplement oxygen, wean as able -CRP and D-dimer every 2 days -Isolation precautions COPD-Long smoking history. Quit 6 years ago. No evidence for acute exacerbation. -Scheduled and as needed inhalers Coronary artery disease-history of bypass surgery in the last 6 months. No a ctive chest pain. -Medical management Maintenance issues - -DVT prophylaxis-enoxaparin -GI prophylaxis-not indicated -Nutrition-regular Disposition -I anticipate discharge home after the hospital stay. If he remains off oxygen overnight he may be able to go home tomorrow Primary care physician -Dr. Sahil Asif M.D.
[2021-07-17] MEDS ORDERED: Dexamethasone 4 MG/ML SDV IVPUSH SCH (15:00)
[2021-07-17] MEDS ORDERED: REMDESIVIR 100 MG in Sodium Chloride 0.9% 100 ML IV SCH (15:00)
[2021-07-17] MEDS: Enoxaparin 40 MG/0.4 ML Syringe SUBCUT SCH (17:19)
[2021-07-17] MEDS: Terazosin 5 MG Cap PO SCH (21:17)
[2021-07-17] MEDS: atorvaSTATin 20 MG Tab PO SCH (21:17)
[2021-07-17] MEDS: Pantoprazole 40 MG Tab.CR PO SCH (21:17)
[2021-07-17] MEDS: QUEtiapine 25 MG Tab PO SCH (21:17)
[2021-07-18] MEDS: Albuterol/Ipratropium 4 GM Inhalation Spray INH SCH (07:29)
[2021-07-18] MEDS: Clopidogrel 75 MG Tab PO SCH (08:59)
[2021-07-18] MEDS: Aspirin 81 MG Tab.Chew PO SCH (08:59)
[2021-07-18] MEDS: Metoprolol Succinate 25 MG Tab.ER PO SCH (09:00)
[2021-07-18 10:52] VITALS: BP 107/55; PULSE 78
--- NOTE | 2021-07-18 12:15 | PCM.DCSUM1 ---
Discharge Summary - Hospital Course Brief History: 75-year-old male with history of coronary artery disease and bypass grafting surgery several months ago, COPD who presented with increasing cough, shortness of breath, weakness and fatigue. He was admitted for management of COVID-19 pneumonia with acute respiratory failure. Diagnosis: Stroke: No - Discharge Data Discharge Date: 07/18/21 Discharge Disposition: Home, W Home Health Agency 06 Condition: Good - Referral to Home Health Date of Face to Face Encounter: 07/18/21 Reason for Homebound Status: Weakness and dyspnea after Covid infection Primary Care Physician: PCP None Skilled Need: Physical therapy - Discharge Diagnosis/Problem(s) (1) Pneumonia due to COVID-19 virus SNOMED Code(s): 617845126471189472 ICD Code: U07.1 - COVID-19; J12.82 - PNEUMONIA DUE TO CORONAVIRUS DISEASE 2018 Status: Acute Current Visit: Yes (2) Acute respiratory failure due to COVID-19 SNOMED Code(s): 049999028 ICD Code: U07.1 - COVID-19; J96.00 - ACUTE RESPIRATORY FAILURE, UNSP W HYPOXIA OR HYPERCAPNIA Status: Acute Current Visit: Yes (3) COPD (chronic obstructive pulmonary disease) SNOMED Code(s): 96581662 ICD Code: J44.9 - CHRONIC OBSTRUCTIVE PULMONARY DISEASE, UNSPECIFIED Status: Chronic Current Visit: Yes Qualifiers: COPD type: unspecified COPD Qualified Code(s): J44.9 - Chronic obstructive pulmonary disease, unspecified (4) CAD (coronary artery disease) SNOMED Code(s): 89687097 ICD Code: I25.10 - ATHSCL HEART DISEASE OF [place] CORONARY ARTERY W/O ANG PCTRS Status: Chronic Current Visit: Yes Qualifiers: Coronary Disease-Associated Artery/Lesion type: [place] artery [place] vs. transplanted heart: [place] heart Associated angina: without angina Qualified Code(s): I25.10 - Atherosclerotic heart disease of [place] coronary artery without angina pectoris - Patient Summary/Data Consults: Consultations 07/17/21 14:51 Consult to Physical Therapy [PT Evaluation and Treatment] [CONS] Routine Please Evaluate and Treat. PT Reason for Consult: Strengthening Pending Discharge: Yes Discharge Disposition: Home w Home Health This query below is only for informational purposes and is not editable. Admission Diagnosis/Problem: Pneumonia Hospital Course: Jonn presented to the emergency room with increasing cough, shortness of breath and weakness. Work-up in the emergency room revealed evidence for COVID-19 pneumonia as well as acute respiratory failure with hypoxia. He was started on dexamethasone and remdesivir and admitted to the hospital for further management. Over the next 48 hours we saw steady improvement in his respiratory status. We are able to wean him off of his supplemental oxygen. Symptomatically he has improved quite a bit. He does still remain a little bit fatigued and slightly weak but overall is doing very well. Appetite has been good. He has not had any fevers. He has gone more than 24 hours without supplemental oxygen. He feels well enough to go home. He was interested in home care to help improve his strength and endurance. I did encourage him to quarantine through 07/20 which would be 10 days for his mild illness. He has early follow-up with his primary care scheduled. No additional treatment is required after hospital discharge since he is no longer hypoxic. - Patient Instructions Diet: Regular Diet as Tolerated Activity: As Tolerated Showering/Bathing: May Shower Other/Special Instructions: 1. You were in the hospital for management of pneumonia caused by the COVID-19 virus. Your condition is improving with treatment provided here in the hospital. You no longer require supplemental oxygen. No additional specific treatment is required after your hospital discharge. I would encourage you to quarantine until 07/20. You may resume your usual activities at that time. You should listen to your body and increase your activity as tolerated. If you develop fatigue or dyspnea you should take a rest. It is likely that it will take several days or possibly a few weeks to get back to full speed after this infection. 2. I did place a referral to home health care. They will be providing physical therapy services to improve your strength and endurance after hospital discharge. - Discharge Plan *PRESCRIPTION DRUG MONITORING PROGRAM REVIEWED*: Not Applicable *COPY OF PRESCRIPTION DRUG MONITORING REPORT IN PATIENT MOIZ: Not Applicable Home Medications: Home Meds Multivitamin [Men's Multi-Vitamin] 1 mg PO DAILY 01/31/16 [History] Terazosin HCl [Terazosin] 5 mg PO BEDTIME 01/31/16 [History] atorvaSTATin [Lipitor] 40 mg PO BEDTIME 01/31/16 [History] Calcium Carbonate/Vitamin D3 [Calcium 600 + Vit D 200] 1 each PO DAILY 05/17/19 [History] Clopidogrel Bisulfate [Plavix] 75 mg PO DAILY 05/17/19 [History] Acetaminophen 650 mg PO BID PRN 07/16/21 [History] Albuterol Sulfate [Proair Respiclick] 1 puff INH ASDIRECTED 07/16/21 [History] Aspirin 81 mg PO DAILY 07/16/21 [History] Ipratropium/Albuterol Sulfate [Iprat-Albut 0.5-3(2.5) mg/3 ml] 1 dose INH TID 07/16/21 [History] Metoprolol Succinate 12.5 mg PO DAILY 07/16/21 [History] Pantoprazole [ProTONIX] 40 mg PO BEDTIME 07/16/21 [History] QUEtiapine [SEROquel] 12.5 mg PO BEDTIME 07/16/21 [History] QUEtiapine [SEROquel] 12.5 mg PO DAILY PRN 07/16/21 [History] Sennosides/Docusate Sodium [Senna-S 8.6-50 mg Tablet] 2 tab PO DAILY 07/16/21 [History] Sucralfate 1 tab PO QID PRN 07/16/21 [History] Tiotropium [place] [Spiriva Respimat] 2 puff INH DAILY 07/16/21 [History] Oxygen Therapy Mode: Room Air Patient Handouts: Hypoxia, Fall Prevention in the Home, Adult, [id number], COVID-19 Referrals: Osman Manjarrez MD [Physician] - (1-2 weeks -follow-up hospital stay for Covid pneumonia) - Discharge Summary/Plan Comment DC Time >30 min.: No Total # of Minutes for Discharge Time: 25 - Patient Data Vitals - Most Recent: Last Vital Signs Temp 36.6 C 07/18/21 10:51 Pulse 78 07/18/21 10:51 Resp 16 07/18/21 10:51 BP 107/55 L 07/18/21 10:51 Pulse Ox 97 07/18/21 10:51 Weight - Most Recent: 72.575 kg I&O - Last 24 hours: Intake & Output 07/17/21 07/18/21 07/18/21 22:59 06:59 14:59 Intake Total 600 Balance 600 Lab Results - Last 24 hrs: Laboratory Results - last 24 hr 07/18/21 07/18/21 Range/Units 05:30 05:30 D-Dimer, Quantitative 1553.49 H (0.0-500.0) ng/mL Sodium 141 (140-148) mmol/L Potassium 4.6 (3.6-5.2) mmol/L Chloride 108 (100-108) mmol/L Carbon Dioxide 26 (21-32) mmol/L Anion Gap 7.4 (5.0-14.0) mmol/L BUN 24 H (7-18) mg/dL Creatinine 1.0 (0.8-1.3) mg/dL Est Cr Clr Drug Dosing 63.50 mL/min Estimated GFR (MDRD) > 60 (>60) Glucose 121 H (74-106) mg/dL Calcium 7.7 L (8.5-10.1) mg/dL Total Bilirubin 0.2 (0.2-1.0) mg/dL AST 26 (15-37) U/L ALT 33 (12-78) U/L Alkaline Phosphatase 74 (46-116) U/L C-Reactive Protein 4.01 H (0.0-0.3) mg/dL Total Protein 5.6 L (6.4-8.2) g/dL Albumin 2.5 L (3.4-5.0) g/dL Globulin 3.1 (2.3-3.5) g/dL Albumin/Globulin Ratio 0.8 L (1.2-2.2) Med Orders - Current: Current Medications Acetaminophen (Acetaminophen 325 Mg Tab) 650 mg PO Q4H PRN PRN Reason: Pain (Mild 1-3)/fever Last Admin: 07/16/21 21:18 Dose: 650 mg Documented by: Albuterol (Albuterol 8 Gm Inhaler) 0 gm INH Q4H PRN PRN Reason: shortness of breath/wheezing Albuterol/Ipratropium (Albuterol/Ipratropium 4 Gm Inhalation [place]) 0 gm INH QIDRT [facility] Last Admin: 07/18/21 07:29 Dose: 1 puff Documented by: Aspirin (Aspirin 81 Mg Tab.Chew) 81 mg PO DAILY [facility] Last Admin: 07/18/21 08:59 Dose: 81 mg Documented by: Atorvastatin Calcium (Atorvastatin 20 Mg Tab) 40 mg PO BEDTIME [facility] Last Admin: 07/17/21 21:17 Dose: 40 mg Documented by: Benzonatate (Benzonatate 100 Mg Cap) 100 mg PO TID PRN PRN Reason: Cough Clopidogrel Bisulfate (Clopidogrel 75 Mg Tab) 75 mg PO DAILY [facility] Last Admin: 07/18/21 08:59 Dose: 75 mg Documented by: Dexamethasone (Dexamethasone 4 Mg/Ml Sdv) 6 mg IVPUSH Q24H [facility] Last Admin: 07/17/21 16:14 Dose: 6 mg Documented by: Enoxaparin Sodium (Enoxaparin 40 Mg/0.4 Ml Syringe) 40 mg SUBCUT Q24H [facility] Last Admin: 07/17/21 17:19 Dose: 40 mg Documented by: Guaifenesin/Dextromethorphan (Guaifenesin/Dextromethorphan 100-10 Mg/5 Ml Soln 10 Ml Cup) 10 ml PO Q4H PRN PRN Reason: Cough Remdesivir 100 mg/ Sodium (Chloride) 100 mls @ 100 mls/hr IV Q24H [facility] Stop: 07/20/21 15:59 Last Admin: 07/17/21 16:13 Dose: 100 mls/hr Documented by: Lorazepam (Lorazepam 2 Mg/Ml Sdv) 0.5 mg IVPUSH Q4H PRN PRN Reason: Nausea/Vomiting Magnesium Hydroxide (Magnesium Hydroxide 400 Mg/5 Ml Susp 30 Ml Cup) 30 ml PO Q12H PRN PRN Reason: Constipation Melatonin (Melatonin 3 Mg Tab) 9 mg PO BEDTIME PRN PRN Reason: Sleep Metoprolol Succinate (Metoprolol Succinate 25 Mg Tab.Er) 12.5 mg PO DAILY [facility] Last Admin: 07/18/21 09:00 Dose: 12.5 mg Documented by: Ondansetron HCl (Ondansetron 4 Mg/2 Ml Sdv) 4 mg IV Q6H PRN PRN Reason: Nausea/Vomiting Ondansetron HCl (Ondansetron 4 Mg Tab.Dis) 4 mg PO Q6H PRN PRN Reason: Nausea able to take PO Oxycodone HCl (Oxycodone 5 Mg Tab) 5 - 10 mg PO Q4H PRN PRN Reason: Pain Pantoprazole Sodium (Pantoprazole 40 Mg Tab.Cr) 40 mg PO BEDTIME [facility] Last Admin: 07/17/21 21:17 Dose: 40 mg Documented by: Quetiapine Fumarate (Quetiapine 25 Mg Tab) 12.5 mg PO BEDTIME [facility] Last Admin: 07/17/21 21:17 Dose: 12.5 mg Documented by: Quetiapine Fumarate (Quetiapine 25 Mg Tab) 12.5 mg PO DAILY PRN PRN Reason: Agitation Senna/Docusate Sodium (Docusate Sodium/Sennosides 50-8.6 Mg Tab) 1 tab PO BID PRN PRN Reason: Constipation Sodium Chloride (Sodium Chloride 0.9% 10 Ml Syringe) 10 ml FLUSH ASDIRECTED PRN PRN Reason: Keep Vein Open Last Admin: 07/16/21 12:39 Dose: 10 ml Documented by: Terazosin HCl (Terazosin 5 Mg Cap) 5 mg PO BEDTIME [facility] Last Admin: 07/17/21 21:17 Dose: 5 mg Documented by: Discontinued Medications Dexamethasone (Dexamethasone 4 Mg/Ml Sdv) 6 mg IVPUSH ONETIME ONE Stop: 07/16/21 13:09 Last Admin: 07/16/21 14:48 Dose: 6 mg Documented by: Sodium Chloride (Normal Saline) 1,000 mls @ 1,000 mls/hr IV .BOLUS ONE Stop: 07/16/21 13:52 Last Admin: 07/16/21 20:03 Dose: Not Given Documented by: Sodium Chloride (Normal Saline) 1,000 mls @ 1,000 mls/hr IV .BOLUS ONE Stop: 07/16/21 14:06 Last Admin: 07/16/21 14:50 Dose: 1,000 mls/hr Documented by: Remdesivir 200 mg/ Sodium (Chloride) 250 mls @ 250 mls/hr IV ONETIME ONE Stop: 07/16/21 15:14 Last Admin: 07/16/21 14:50 Dose: 250 mls/hr Documented by:
== END 2021-07-18 15:05 | disposition home health service (06) | DRG 177 ==
LOC: JP.ED 11:39 → JP.2SS 16:19
PROVIDERS: ADMIT Internal Medicine; ATTEND Internal Medicine
PROC: 8E0ZXY6 Isolation (ICD-10-PCS; principal; 2021-07-16)
PROC: XW033E5 Introduction of Remdesivir Anti-infective into Peripheral Vein, Percutaneous Approach, New Technology Group 5 (ICD-10-PCS; 2021-07-16)
PROC: 3E0333Z Introduction of Anti-inflammatory into Peripheral Vein, Percutaneous Approach (ICD-10-PCS; 2021-07-16)
DX: U07.1 COVID-19 (principal); R09.02 Hypoxemia; H54.7 Unspecified visual loss; E78.00 Pure hypercholesterolemia, unspecified; J12.82 Pneumonia due to coronavirus disease 2019; K21.9 Gastro-esophageal reflux disease without esophagitis; J96.01 Acute respiratory failure with hypoxia; M19.90 Unspecified osteoarthritis, unspecified site; N42.9 Disorder of prostate, unspecified; G47.00 Insomnia, unspecified; I25.10 Atherosclerotic heart disease of native coronary artery without angina pectoris; Z87.891 Personal history of nicotine dependence; Z79.02 Long term (current) use of antithrombotics/antiplatelets; Z79.82 Long term (current) use of aspirin; Z79.899 Other long term (current) drug therapy; E78.5 Hyperlipidemia, unspecified; J44.9 Chronic obstructive pulmonary disease, unspecified; I10 Essential (primary) hypertension; Z95.1 Presence of aortocoronary bypass graft; Z86.73 Personal history of transient ischemic attack (TIA), and cerebral infarction without residual deficits; I25.2 Old myocardial infarction; Z98.890 Other specified postprocedural states; Z90.89 Acquired absence of other organs
CPT/HCPCS: 36415; 71046 ×2; 80048; 80076; 85027; 85379; 86140; 96365; 96375; 99285; J1100; J7030; J7050; U0002; 80053; 81001; 94640; 94762; 97161-GP; 97535-GP; A9270-GY; J1650

== ENCOUNTER 2024-10-26 10:08 | Emergency (ER) | payer MEDICARE ==
[2024-10-26 11:36] LABS: BASOPHILS ABSOLUTE AUTO 0.03 K/uL (0.00-0.10); BASOPHILS PERCENT AUTO 0.4 % (0.1-1.3); EOSINOPHILS ABSOLUTE AUTO 0.11 K/uL (0.00-0.40); EOSINOPHILS PERCENT AUTO 1.3 % (0.0-5.4); HEMATOCRIT 38.5 % (38.4-49.7); HEMOGLOBIN 12.8 g/dL (12.9-16.9); IMMATURE GRAN PERCENT AUTO 0.2 % (0.0-0.7); LYMPHOCYTES ABSOLUTE AUTO 1.07 K/uL (0.8-3.3); LYMPHOCYTES PERCENT AUTO 12.6 % (11.4-47.7); MEAN CORPUSCULAR HEMOGLOBIN 32.6 pg (31.6-35.5); MEAN CORPUSCULAR HGB CONC 33.2 g/dL (31.6-35.5); MONOCYTES ABSOLUTE AUTO 0.58 K/uL (0.20-0.90); MONOCYTES PERCENT AUTO 6.8 % (3.3-12.6); NEUTROPHILS ABSOLUTE AUTO 6.71 K/uL (1.0-7.6); NEUTROPHILS PERCENT AUTO 78.7 % (40.0-78.1); PLATELET COUNT,PLT 196 K/uL (130-375); RED BLOOD CELL COUNT 3.93 M/uL (4.14-5.76); WHITE BLOOD CELL COUNT,WBC 8.5 K/uL (3.2-11.0)
[2024-10-26 11:37] LABS: IMMATURE GRAN ABSOLUTE AUTO 0.02 K/uL (0.00-0.23)
[2024-10-26 11:51] LABS: ANION GAP 7.7 mmol/L (5.0-14.0); CALCIUM 9.2 mg/dL (8.5-10.1); EST CRCL DRUG DOSING (CG) 31.28 mL/min; POTASSIUM,K 4.2 mmol/L (3.6-5.2)
[2024-10-26 12:48] VITALS: BP 120/63; PULSE 63
== END 2024-10-26 13:48 | disposition home or self-care (01) ==
LOC: JP.ED 10:08
DX: J44.1 Chronic obstructive pulmonary disease with (acute) exacerbation (principal); E86.0 Dehydration; I10 Essential (primary) hypertension; E78.00 Pure hypercholesterolemia, unspecified; I25.2 Old myocardial infarction; J44.9 Chronic obstructive pulmonary disease, unspecified; Z79.899 Other long term (current) drug therapy; Z79.82 Long term (current) use of aspirin; Z87.891 Personal history of nicotine dependence
CPT/HCPCS: 36415; 71046; 71046-26; 80048; 85025; 99284; 99285